=== PATIENT | female | born 1990 | race Caucasian/White ===

== ENCOUNTER 2017-10-20 19:06 | Inpatient (IN) ==
[2017-10-20] MEDS ORDERED: ONDANSETRON 4 MG/2 ML VIAL IV ONE ×2 (19:48→22:42)
[2017-10-20] MEDS ORDERED: LACTATED RINGERS 1,000 ML IV ONE (19:48)
[2017-10-20 20:36] LABS: Basophils # (Auto) 0 K/mcL (0.0-0.3); Basophils % (Auto) 0.1 % (0.0-2.0); Eosinophils # (Auto) 0.3 K/mcL (0.0-0.7); Eosinophils % (Auto) 2.1 % (0.0-7.0); Granulocytes % (Auto) 86.2 % (38.0-78.0); Lymphocytes # (Auto) 0.7 K/mcL (1.5-4.8); Lymphocytes % (Auto) 5.1 % (15.5-49.0); Mean Cell Volume 63.8 fL (80.0-100.0); Mean Corpuscular HGB Conc 30.5 g/dL (31.0-36.0); Mean Corpuscular Hemoglobin 19.4 pg (26.0-34.0); Monocytes # (Auto) 0.9 K/mcL (0.1-0.9); Monocytes % (Auto) 6.5 % (1.0-12.0); Platelet Count 248 K/mcL (140-440); RBC 3.59 M/mcL (4.00-5.20); Red Cell Distribution Width 17.7 % (11.5-14.5)
[2017-10-20 20:53] LABS: ALT/SGPT 10 U/l (0-40); Albumin 4.3 gm/dL (3.2-5.2); Albumin/Globulin Ratio 1.5 (1.0-2.3); Alkaline Phosphatase 55 U/L (39-117); Blood Urea Nitrogen 12 mg/dl (6-20); C-Reactive Protein 1.3 mg/dl (0.0-0.8)
[2017-10-20] MEDS ORDERED: HYDROmorphone 2 MG/ML VIAL IV ONE (22:43)
[2017-10-20] MEDS ORDERED: PIPERACILLIN SODIUM/TAZOBACTAM 3.375 GM in DEXTROSE 5% IN WATER 50 ML IV ONE (22:59)
[2017-10-20] MEDS ORDERED: ONDANSETRON 4 MG/2 ML VIAL IV PRN (23:03)
[2017-10-20] MEDS ORDERED: HYDROmorphone 2 MG/ML VIAL IV PRN (23:03)
[2017-10-20] MEDS ORDERED: 0.9 % SODIUM CHLORIDE 250 ML IV SCH (23:15)
[2017-10-21] MEDS ORDERED: HYDROmorphone 2 MG/ML VIAL ONE (01:25)
[2017-10-21] MEDS: HYDROmorphone 2 MG/ML VIAL IV PRN ×3 (01:29→09:57)
[2017-10-21] MEDS: DEXTROSE 5%-1/2NS 1,000 ML IV SCH ×2 (04:38→14:26)
[2017-10-21] MEDS: PIPERACILLIN SODIUM/TAZOBACTAM 3.375 GM in DEXTROSE 5% IN WATER 50 ML IV SCH ×5 (05:12→23:45)
[2017-10-21 07:14] LABS: Basophils # (Auto) 0 K/mcL (0.0-0.3); Basophils % (Auto) 0.2 % (0.0-2.0); Eosinophils # (Auto) 0.5 K/mcL (0.0-0.7); Eosinophils % (Auto) 3.7 % (0.0-7.0); Granulocytes % (Auto) 80.1 % (38.0-78.0); Lymphocytes # (Auto) 1.1 K/mcL (1.5-4.8); Lymphocytes % (Auto) 8.9 % (15.5-49.0); Mean Corpuscular HGB Conc 31.5 g/dL (31.0-36.0); Mean Corpuscular Hemoglobin 21.4 pg (26.0-34.0); Monocytes # (Auto) 0.9 K/mcL (0.1-0.9); Monocytes % (Auto) 7.1 % (1.0-12.0); Platelet Count 239 K/mcL (140-440); RBC 3.86 M/mcL (4.00-5.20); Red Cell Distribution Width 20.5 % (11.5-14.5)
[2017-10-21 07:15] LABS: Appearance,Urine CLEAR; Bilirubin,Urine NEG (NEG); Color,Urine YELLOW; Glucose,Urine (UA) NEGATIVE (NEG); Leukocyte Esterase,Urine NEG /uL (NEG); Protein,Urine NEG (NEG); Urine Blood NEG mg/dL (<0.03); Urobilinogen,Urine NEG (NEG)
[2017-10-21 07:32] LABS: ALT/SGPT 8 U/l (0-40); Albumin 3.9 gm/dL (3.2-5.2); Albumin/Globulin Ratio 1.7 (1.0-2.3); Alkaline Phosphatase 47 U/L (39-117); Bilirubin,Direct 0.2 mg/dL (0.0-0.3); Blood Urea Nitrogen 8 mg/dl (6-20); Gamma Glutamyl Transpeptidase 9 U/L (5-36); Uric Acid 1.9 mg/dL (2.5-8.0)
--- NOTE | 2017-10-21 08:13 | Ultrasound Report ---
History: Pelvic pain and vaginal bleeding. Findings: The pelvis was imaged transabdominally and endovaginally Uterus is retroflexed. Myometrium is homogeneous. It measures 4.4 x 5.4 x 7.7 cm. The endometrium is 1.5 mm in thickness and there is no fluid in the endometrial canal. The right ovary is 2.2 x 3.0 x 5.6 cm and contains small follicles. There is normal blood flow to the right ovary. Contiguous with the right ovary there is a heterogeneous complex mass which contains some brightly echogenic material. It measures 2.7 x 4.1 x 4.4 cm. This is hypovascular. A small amount of free fluid is present in the adnexa. The left ovary is normal and contain small follicles. The ovary is 2.0 x 2.4 x 3.5 cm. Doppler shows a number of engorged vessels in the right adnexa. This is associated with pelvic venous congestion syndrome. Impression: 4.4 cm right adnexal mass which is most likely a teratoma or dermoid. Normal uterus and ovaries Engorged veins in the right adnexa. This is associated pelvic venous congestion syndrome Interpreted and Authenticated by: Owen Moreno 10/21/17
--- NOTE | 2017-10-21 08:18 | Cat Scan Report ---
CLINICAL INFORMATION: Right lower quadrant pain with nausea and vomiting COMPARISON: Pelvic ultrasound done on 10/20/17 FINDINGS: The pelvis is imaged following intravenous but no oral contrast from above the iliac crest to the symphysis pubis. Sagittal and coronal reformats were created. Inferior to the cecum there is a tubular shaped fluid-filled structure which measures up to 9 mm in diameter. No appendicolith is seen. There is subtle stranding of surrounding fat. No abscess is present and there is no free fluid adjacent to this structure. In the right adnexa there is a fat-containing mass which contains more solid components centrally. It measures 3 cm. There is a similar-appearing fat-containing mass located superior and anterior to the upper fundus of the uterus. It measures 4.5 cm. The one in the right adnexa was seen on the preceding ultrasound. The one on the left side of the pelvis was outside of the field of view of the pelvic ultrasound. There is a very small amount of free fluid in the right adnexa and in the posterior cul-de-sac. The urinary bladder appears normal. No abnormality is seen in the uterus or ovaries. IMPRESSION: Acute appendicitis Bilateral dermoids or teratomas in the adnexa Interpreted and Authenticated by: Owen Moreno 10/21/17
--- NOTE | 2017-10-21 09:22 | Emergency Department Note ---
Abdominal Pain HPI - General Chief Complaint: Abdominal Pain Stated Complaint: rlq pain, n/v Time Seen by Provider: 10/20/17 20:34 Source: patient Mode of arrival: ambulatory Limitations: no limitations - History of Present Illness HPI Narrative: This pleasant 26-year-old female came to the emergency room this evening having onset of abdominal pain around 6 AM today. Has been off and on in the right lower quadrant. No previous similar. She has had some nausea and some emesis of bile. She has had some of this all day long with about 6 episodes. She has had some feverish feeling as well as temperature 99.2 100 with chills but no sweats. She has had some headaches off and on as well. She has her appendix. No history of ovarian cyst. No history of tubal ligation. No history of anemia. She does not believe she is . Her last menstrual period was not normal but she had 3 of them in September and this is new completely for her. Have been using "pull out method" for contraception. REVIEW OF SYSTEMS: Has had some off-and-on chest pains today. No cough nor shortness of breath. Has had some constipation. Denies hematochezia, melena, acid reflux, heartburn. No dysuria. Has had significant anxiety. No depression. - Related Data Home Medications Medication Instructions Recorded Confirmed Zzzquil 30 ml PO HSP PRN 10/21/17 10/21/17 Allergies Allergy/AdvReac Type Severity Reaction Status Date / Time No Known Drug Allergies Allergy Verified 10/20/17 19:09 Abdominal Pain PMH - Past Medical History Medical history: Reports: other (NO anemia, NO ovarian cysts, NO tubal .) Psychiatric history: Reports: anxiety. Denies: depression Family history: Reports: other (Appendicitis and peptic ulcer disease) - Social History Smoking status: Never smoker Physical Exam Limitations: no limitations General appearance: alert, in no apparent distress Head: atraumatic, normocephalic Eye: Present: EOMI ENT: normal oropharynx, mucous membranes moist Neck: Present: trachea midline. Absent: lymphadenopathy, thyromegaly Respiratory: Present: normal lung sounds bilaterally. Absent: respiratory distress, wheezes, stridor, accessory muscle use, prolonged expiratory phase Cardiovascular: Present: regular rate, normal rhythm. Absent: systolic murmur, diastolic murmur Abdominal: Present: soft, tenderness. Absent: distention, guarding, rebound, rigidity, organomegaly, mass Abdominal tenderness: Present: RLQ, moderate Extremities: Absent: pedal edema, pretibial edema, calf tenderness Back: Absent: CVA tenderness (R), CVA tenderness (L), spinous process tenderness Neurological: Present: alert, oriented X3 Psychiatric: Present: normal affect, normal mood Skin: Present: warm, dry, pallor (to palms, lips, and fingernail beds. This is moderate to severe pallor.) Course Vital Signs Temperature 98.6 F 10/20/17 19:06 Pulse Rate 105 H 10/20/17 19:06 Respiratory Rate 14 10/20/17 19:06 Blood Pressure 117/71 10/20/17 19:06 Pulse Oximetry (%) 100 10/20/17 19:06 Temperature 99.9 F H 10/21/17 07:32 Pulse Rate 96 H 10/21/17 04:30 Respiratory Rate 16 10/21/17 07:32 Blood Pressure 90/58 10/21/17 07:32 Pulse Oximetry (%) 98 10/21/17 07:32 Abdominal Pain - MDM Narrative Medical decision making narrative: 7:33 PM Right lower quadrant pain in the setting of female with incomplete control considerations but low-grade fever. Will start with labs and ultrasound. Consider CT scan. 9:00 PM approximately. Labs returned with mildly elevated white count and mildly elevated CRP. Ultrasound demonstrated a probable teratoma of the right ovary. CT ordered. Labs also revealed a very significant anemia with microcytosis, hypochromic pattern. This is not felt to be acute blood loss due to how well she is handling this overall her generally. However, the ultrasound did show a small amount of fluid in both sides of the adnexal areas of the pelvis. test was negative. 10:[address] scan reveals possible bilateral teratomas and suspicious for acute appendicitis. I discussed case with hospitalist and then surgeon Dr. Hector Patel, with conclusion to go with antibiotics, transfuse 2 units, monitor and plan for appendectomy tomorrow and consideration of what to do with the teratomas whether to biopsy or if needs oophorectomy. - Lab Data Result diagrams: 10/21/17 06:43 10/21/17 06:43 Lab Results 10/20/17 10/20/17 10/20/17 Range/Units 19:50 19:50 19:50 WBC 13.5 H (4.5-11.0) K/mcL RBC 3.59 L (4.00-5.20) M/mcL Hgb 7.0 L* (12.0-15.0) g/dL Hct 22.9 L (36.0-48.0) % MCV 63.8 L (80.0-100.0) fL MCH 19.4 L (26.0-34.0) pg MCHC 30.5 L (31.0-36.0) g/dL RDW 17.7 H (11.5-14.5) % Plt Count 248 (140-440) K/mcL MPV 8.6 (7.4-10.4) fL Gran % 86.2 H (38.0-78.0) % Lymph % (Auto) 5.1 L (15.5-49.0) % Leon % (Auto) 6.5 (1.0-12.0) % Eos % (Auto) 2.1 (0.0-7.0) % Baso % (Auto) 0.1 (0.0-2.0) % Gran # 11.7 H (1.8-8.0) K/mcL Lymph # (Auto) 0.7 L (1.5-4.8) K/mcL Leon # (Auto) 0.9 (0.1-0.9) K/mcL Eos # (Auto) 0.3 (0.0-0.7) K/mcL Baso # (Auto) 0 (0.0-0.3) K/mcL PT TNP INR TNP APTT TNP Sodium 136 (133-145) mmol/L Potassium 3.5 (3.3-5.1) mmol/L Chloride 100 (96-108) mmol/L Carbon Dioxide 21 L (22-30) mmol/L Anion Gap 15.0 (8-16) BUN 12 (6-20) mg/dl Creatinine 0.6 (0.6-1.1) mg/dl GFR Calculation 125 Glucose 92 (70-105) mg/dL Calcium 8.9 (8.6-10.4) mg/dl Total Bilirubin 0.4 (0.0-1.0) mg/dL AST 16 (0-37) U/l ALT 10 (0-40) U/l Alkaline Phosphatase 55 (39-117) U/L C-Reactive Protein 1.3 H (0.0-0.8) mg/dl Total Protein 7.2 (5.9-8.4) gm/dL Albumin 4.3 (3.2-5.2) gm/dL Globulin 2.9 (2.2-3.7) gm/dL Albumin/Globulin Ratio 1.5 (1.0-2.3) Disposition Pt seen by [facility] only: No Clinical Impression: Abnormal ultrasound of ovary, Hypochromic microcytic anemia, Polymenorrhea Appendicitis Qualifiers: Appendicitis type: acute appendicitis Acute appendicitis type: with localized peritonitis Qualified Code(s): K35.3 - Acute appendicitis with localized peritonitis Disposition: Xfer As Inpt ([facility]) Condition: Fair
--- NOTE | 2017-10-21 11:39 | General Surg History&Physical ---
History of Present Illness Patient information: Note initiated : 10/21/17 at 11:34 am Service Date, if different from initiated Date: [] Patient: Marci Majano a 26 y/o F admitted on 10/20/17 for RLQ Pain, Nause and Vomiting/Appendicitis. Chief Complaint: [] HPI: Ms. Majano is a 26 year old F admitted with right lower quadrant pain. The patient awakened at 6 AM on 20 October with sharp pain in the right lower quadrant. This was followed by nausea and vomiting 6 over the next 12 hours. The pain progressed in severity throughout the day but stayed in the right lower quadrant. She was seen in the emergency room where she was noted to have a tender abdomen specifically in the right lower quadrant with guarding. She also had anemia with hemoglobin of 7 and leukocytosis of 13,200. Pelvic ultrasound revealed a right ovarian cyst. CT of the abdomen revealed acute appendicitis with bilateral ovarian masses compatible with dermoid or teratoma. There was a small amount of blood or fluid in the pelvis. The patient states that she has not had dysfunctional bleeding except for September when she had 3 heavy periods. This had not happened before. She did not have pelvic pain previously. She was not known to be anemic previously. Discussed with patient the approach of therapy today. We will do a laparoscopic appendectomy. I will order a CA-19-9 and CEA 125 in preparation for future treatment of her dermoid cyst. Biopsies will not be done because of potential for spillage and small potential for contamination of the peritoneal cavity if these indeed have malignancy. She is informed that the potential for malignancy is very small but still needs to be considered. She and her mother agree with this approach. Review of Systems All systems PM: reviewed and no additional remarkable complaints except as stated - Cardiovascular chest pain (Episodic mid chest pain of variable frequency unassociated with activity) - Genitourinary Menstruation: period heavy (3 periods In September) - Musculoskeletal other (Bilateral plantar pain of recent onset) - Psychiatric anxiety, no depression Past History Past medical history: No chronic medical illness Past surgical history: No surgical procedure Past family history: Mother age 53 with chronic anemia Father age 52 with alcohol-related disease Brother age 25 alive and well Past social history: Employed Never smoker Frequent alcohol use primarily beer Denies drug use Medications and Allergies Home Medications Medication Instructions Recorded Confirmed Type Zzzquil 30 ml PO HSP PRN 10/21/17 10/21/17 History Allergies Allergy/AdvReac Type Severity Reaction Status Date / Time No Known Drug Allergies Allergy Verified 10/20/17 19:09 Exam Temp Pulse Resp BP Pulse Ox 99.9 F H 96 H 16 90/58 98 10/21/17 07:32 10/21/17 04:30 10/21/17 07:32 10/21/17 07:32 10/21/17 07:32 - General physical appearance well developed, well nourished, no distress - Eyes PERRL, normal ocular movement - ENT normal pinna, normal nares, normal mucosa, no hearing loss, no congestion - Head Head exam IM: Present: atraumatic, normocephalic - Neck no masses, no bruits, trachea midline, no lymphadectomy, no venous distension - Cardiovascular Cardiovascular exam IM: Present: normal rate and rhythm - Respiratory normal expansion, normal respiratory effort, clear to percussion, clear to auscultation - Abdomen Abdomen: Present: soft, tender (Diffuse tenderness in right lower quadrant and suprapubic area; no palpable mass), bowel sounds Hernia: Present: none - Genitourinary Present: normal external genitalia - Integumentary Present: no rash, no growths, no abnormal pigmentation - Neurologic Present: normal coordination, normal sensation - Musculoskeletal Present: normal gait, normal posture - Psychiatric Present: oriented to time, oriented to person, oriented to place, speech is normal, memory intact Assessment and Plan (1) Appendicitis Counseled for laparoscopic appendectomy today Status: Acute Qualifiers: Appendicitis type: acute appendicitis Acute appendicitis type: with localized peritonitis Qualified Code(s): K35.3 - Acute appendicitis with localized peritonitis (2) Hypochromic microcytic anemia Transfuse 2 units of packed red cells preoperatively Status: Acute (3) Bilateral dermoid cysts of ovaries We will do CA-19-9 and CEA 125 during this hospitalization and referred for gynecologic follow-up Status: Acute
[2017-10-21] MEDS ORDERED: NEOSTIGMINE 1 MG/ML VIAL IV ONE (12:10)
[2017-10-21] MEDS ORDERED: ROCURONIUM 10 MG/ML ML IV ONE (12:10)
[2017-10-21] MEDS ORDERED: DEXAMETHASONE 10 MG/ML VIAL IV ONE (12:10)
[2017-10-21] MEDS ORDERED: PROPOFOL 200 MG/20 ML VIAL IV ONE (12:10)
[2017-10-21] MEDS ORDERED: ONDANSETRON 4 MG/2 ML VIAL IV ONE (12:10)
[2017-10-21] MEDS ORDERED: LIDOCAINE HCL/PF 100 MG/5 ML SYRINGE IV ONE (12:10)
[2017-10-21] MEDS ORDERED: GLYCOPYRROLATE 0.2 MG/ML VIAL IV ONE (12:10)
[2017-10-21] MEDS ORDERED: KETAMINE 100 MG/ML ML IV ONE (12:10)
[2017-10-21] MEDS ORDERED: MIDAZOLAM 2 MG/2 ML VIAL IV ONE (12:10)
[2017-10-21] MEDS ORDERED: IPRATROPIUM/ALBUTEROL 3 ML AMPUL.NEB NEB PRN (12:30)
[2017-10-21] MEDS ORDERED: FLUMAZENIL 0.1 MG/ML ML IV PRN (12:30)
[2017-10-21] MEDS ORDERED: MEPERIDINE 25 MG/ML SYRINGE IV PRN (12:30)
[2017-10-21] MEDS ORDERED: BENZOCAINE/MENTHOL 1 LOZENGE PO PRN (12:30)
[2017-10-21] MEDS ORDERED: ONDANSETRON 4 MG/2 ML VIAL IV PRN (12:30)
[2017-10-21] MEDS ORDERED: LACTATED RINGERS 250 ML IV PRN (12:30)
[2017-10-21] MEDS ORDERED: LACTATED RINGERS 1,000 ML IV SCH (12:30)
[2017-10-21] MEDS ORDERED: fentaNYL 100 MCG/2 ML VIAL IV PRN (12:30)
[2017-10-21] MEDS ORDERED: ACETAMINOPHEN 1,000 MG/100 ML BOTTLE IV ONE (12:30)
[2017-10-21] MEDS ORDERED: HYDROmorphone 2 MG/ML VIAL IV PRN ×2 (12:30→13:47)
[2017-10-21] MEDS ORDERED: NALOXONE HCL 0.4 MG/ML VIAL IV PRN (12:30)
[2017-10-21] MEDS ORDERED: METHOCARBAMOL 1,000 MG/10 ML VIAL IV PRN (12:30)
--- NOTE | 2017-10-21 12:54 | Brief Operative Note ---
Date of procedure: 10/21/17 Pre-op diagnosis: acute appendicitis Post-op diagnosis: other (acute appendicitis; Bilateral dermoid cysts) Procedure: laparoscopic appendectomy Grafts/Implants: No Anesthesia: GETA Findings: Acute suppurative appendicitis Bilateral smooth dermoid cysts Complications: none Surgeon: Catherine Patel Estimated blood loss (cc): 5 Specimens Removed/Pathology: other (appendix) Condition: stable Disposition: PACU
--- NOTE | 2017-10-21 13:39 | Operative Note ---
DATE OF OPERATION: 10/21/2017 PREOPERATIVE DIAGNOSIS: Acute appendicitis. POSTOPERATIVE DIAGNOSES: 1. Acute appendicitis. 2. Bilateral dermoid cyst. PROCEDURE: Laparoscopic appendectomy. SURGEON: Catherine Patel M.D. DESCRIPTION: Under general endotracheal anesthesia, the patient's abdomen was prepped and draped in a sterile field. Timeout procedure was carried out as per protocol. Supraumbilical incision was made and Veress needle was inserted. Abdomen was insufflated with 2.5 liters of CO2. A 12 mm port was placed. Laparoscope was placed. The patient was placed in deep Trendelenburg position. Under videoscopic guidance, a 5 mm port was placed in the suprapubic midline and a 12 mm port in the left lower quadrant. Exploration of the pelvis revealed bilateral dermoid cysts which were smooth with some uterine intramural fibroids. There was a large volume of purulent material in the pelvis. The appendix was noted in the right lower quadrant laterally against the abdominal wall. The patient was rotated to the left. Photos of the ovaries were taken for confirmation. The appendix was bluntly dissected away from the lateral parietal peritoneum. It was grasped with a self-retaining grasper. A window was made at the base in the mesoappendix. The appendix and the mesoappendix were then sequentially transected using Endo KAREN stapler. The appendix was placed in an EndoCatch pouch and retrieved. Irrigation in the right gutter was carried out until clear. There was no bleeding. Irrigation of the pelvis was carried out until it was clear. CO2 was allowed to escape from the abdomen, and the ports were removed. The patient tolerated the procedure well. Fascia at the umbilicus was closed with interrupted 0 Vicryl. Skin incisions were closed with byron. The patient tolerated the procedure well. She was awakened uneventfully. Dressings were placed. She was transferred to a bed and taken to the postanesthetic care unit in stable, satisfactory condition. LCS:billie Job ID: [id number] Doc ID: [id number] Catherine Patel M.D.
[2017-10-21] MEDS ORDERED: PROMETHAZINE 25 MG/ML VIAL IV PRN (13:47)
[2017-10-21] MEDS ORDERED: LORazepam 2 MG/ML VIAL IV PRN (13:47)
[2017-10-21] MEDS ORDERED: ACETAMINOPHEN 1,000 MG/100 ML BOTTLE IV PRN (13:47)
[2017-10-21] MEDS: 0.9 % SODIUM CHLORIDE 1,000 ML IV SCH ×2 (14:12→23:00)
[2017-10-21] MEDS: oxyCODONE/APAP 5/325MG TABLET PO PRN ×2 (17:08→22:37)
[2017-10-21] MEDS: ONDANSETRON 4 MG/2 ML VIAL IV PRN (17:14)
[2017-10-22] MEDS: oxyCODONE/APAP 5/325MG TABLET PO PRN ×4 (02:01→13:21)
[2017-10-22] MEDS: PIPERACILLIN SODIUM/TAZOBACTAM 3.375 GM in DEXTROSE 5% IN WATER 50 ML IV SCH ×2 (05:41→12:12)
[2017-10-22] MEDS: 0.9 % SODIUM CHLORIDE 1,000 ML IV SCH ×2 (07:38→14:04)
[2017-10-22 08:11] LABS: ALT/SGPT 11 U/l (0-40); Albumin 3.3 gm/dL (3.2-5.2); Albumin/Globulin Ratio 1.4 (1.0-2.3); Alkaline Phosphatase 53 U/L (39-117); Blood Urea Nitrogen 5 mg/dl (6-20)
[2017-10-22 08:15] LABS: Basophils # (Auto) 0 K/mcL (0.0-0.3); Basophils % (Auto) 0 % (0.0-2.0); Eosinophils # (Auto) 0.7 K/mcL (0.0-0.7); Eosinophils % (Auto) 3.3 % (0.0-7.0); Granulocytes % (Auto) 91.5 % (38.0-78.0); Lymphocytes # (Auto) 0.4 K/mcL (1.5-4.8); Lymphocytes % (Auto) 2.2 % (15.5-49.0); Mean Cell Volume 69.2 fL (80.0-100.0); Mean Corpuscular HGB Conc 31.2 g/dL (31.0-36.0); Mean Corpuscular Hemoglobin 21.5 pg (26.0-34.0); Monocytes # (Auto) 0.6 K/mcL (0.1-0.9); Platelet Count 177 K/mcL (140-440); RBC 3.44 M/mcL (4.00-5.20); Red Cell Distribution Width 21.1 % (11.5-14.5)
[2017-10-22] MEDS: ONDANSETRON 4 MG/2 ML VIAL IV PRN (08:47)
--- NOTE | 2017-10-22 13:00 | General Surgery Progress Note ---
Subjective Patient reports: feels better, pain is less, tolerating liquids well, flatus, bowel movement, afebrile Narrative: Note initiated : 10/22/17 at 12:57 pm Service Date, if different from initiated Date: [] Patient: Marci Majano 26 y/o F admitted on 10/20/17 for RLQ Pain, Nause and Vomiting/Appendicitis. Chief Complaint: [26-year-old female who is status post laparoscopic appendectomy for acute suppurative appendicitis. She was also noted to have bilateral ovarian teratomatous and she has chronic iron deficiency anemia. She was transfused 2 units of packed red cells preoperatively and underwent laparoscopic appendectomy on yesterday. She is clinically stable and has done well. She tolerated liquid diet without difficulty and is stable for discharge. Her hemoglobin today is down to 7 but there is no evidence of blood loss. She feels fine and will not be transfused at this time. She will be discharged on ferrous sulfate and have follow-up hemoglobin evaluation in 1 month.] Objective Temp Pulse Resp BP Pulse Ox 97.8 F 88 16 106/59 97 10/22/17 11:23 10/22/17 04:06 10/22/17 11:23 10/22/17 11:23 10/22/17 11:23 - Additional Data Intake & Output - Last 24 hours: Intake & Output 10/20/17 10/21/17 10/22/17 10/23/17 05:59 05:59 05:59 06:59 Intake Total 1750 / 1750 3510 / 3510 1050 / 1050 Output Total 300 / 300 2725 / 2725 Balance 1450 / 1450 785 / 785 1050 / 1050 Weight 140 lb 140 lb 140 lb - General physical appearance well developed, well nourished, no distress - Eyes PERRL, normal ocular movement - ENT normal pinna, normal nares, normal mucosa, no hearing loss, no congestion - Neck no masses, no bruits, trachea midline, no lymphadectomy, no venous distension - Respiratory normal expansion, normal respiratory effort, clear to percussion, clear to auscultation - Cardiovascular Cardiovascular exam: Present: normal rate and rhythm, RRR, +S1, +S2. Absent: JVD - Abdomen tender (Mild tenderness around port sites with good active bowel sounds), bowel sounds (present), surgical scars (none), masses (none) - Integumentary no rash, no growths, no abnormal pigmentation - Neurologic normal coordination, normal sensation - Musculoskeletal normal gait, normal posture - Psychiatric oriented to time, oriented to person, oriented to place, speech is normal, memory intact - Labs 10/22/17 05:10 10/22/17 05:10 Diabetes panel 10/22/17 Range/Units 05:10 Sodium 139 (133-145) mmol/L Potassium 4.0 (3.3-5.1) mmol/L Chloride 106 (96-108) mmol/L Carbon Dioxide 23 (22-30) mmol/L BUN 5 L (6-20) mg/dl Creatinine 0.6 (0.6-1.1) mg/dl Glucose 118 H (70-105) mg/dL Calcium 8.0 L (8.6-10.4) mg/dl AST 18 (0-37) U/l ALT 11 (0-40) U/l Alkaline Phosphatase 53 (39-117) U/L Total Protein 5.7 L (5.9-8.4) gm/dL Albumin 3.3 (3.2-5.2) gm/dL Calcium panel 10/22/17 Range/Units 05:10 Calcium 8.0 L (8.6-10.4) mg/dl Albumin 3.3 (3.2-5.2) gm/dL Pituitary panel 10/22/17 Range/Units 05:10 Sodium 139 (133-145) mmol/L Potassium 4.0 (3.3-5.1) mmol/L Chloride 106 (96-108) mmol/L Carbon Dioxide 23 (22-30) mmol/L BUN 5 L (6-20) mg/dl Creatinine 0.6 (0.6-1.1) mg/dl Glucose 118 H (70-105) mg/dL Calcium 8.0 L (8.6-10.4) mg/dl Adrenal panel 10/22/17 Range/Units 05:10 Sodium 139 (133-145) mmol/L Potassium 4.0 (3.3-5.1) mmol/L Chloride 106 (96-108) mmol/L Carbon Dioxide 23 (22-30) mmol/L BUN 5 L (6-20) mg/dl Creatinine 0.6 (0.6-1.1) mg/dl Glucose 118 H (70-105) mg/dL Calcium 8.0 L (8.6-10.4) mg/dl Total Bilirubin 0.3 (0.0-1.0) mg/dL AST 18 (0-37) U/l ALT 11 (0-40) U/l Alkaline Phosphatase 53 (39-117) U/L Total Protein 5.7 L (5.9-8.4) gm/dL Albumin 3.3 (3.2-5.2) gm/dL Assessment and Plan (1) Appendicitis Status: Acute Assessment and plan: Stable postoperative day #1 without significant complaints; stable for discharge Current Visit: Yes (2) Hypochromic microcytic anemia Status: Acute Assessment and plan: Today's hemoglobin is 7.4 and patient will be discharged on ferrous sulfate Current Visit: Yes (3) Bilateral dermoid cysts of ovaries Status: Acute Assessment and plan: Discussed with patient the need for future ANTONIO and BSO. She asked if I would perform the procedure and I will make plans to do that in 6 weeks. Current Visit: Yes - Time Spent With Patient Total time spent is greater than 50% in coordination of care (as documented) at patient's floor/unit and/or counseling patient:
--- NOTE | 2017-10-24 14:39 | Surgical Pathology Report ---
HISTOLOGY SPECIMEN MICROSCOPIC DIAGNOSIS APPENDIX, APPENDECTOMY: -- ACUTE APPENDICITIS WITH MARKED TRANSMURAL ACUTE INFLAMMATION AND ACUTE SEROSITIS. (RLF:sln) PROCEDURAL IMPRESSION Acute appendicitis. GROSS DESCRIPTION Received in formalin labeled with the patient information, is an appendix 10.1 cm in length and 1.2 cm in diameter with 1.2 cm of amaya attached fat. It has harris-amaya exudate on the skin surface. The resection margin is stapled closed. Section reveals dilated thin garcia and yellow-amaya fluid. The margin is inked black. [facility] sections submitted - one cassette. ([email or web address]:[email or web address]) Electronically Signed by: Kadi Yan M.D.
== END 2017-10-22 14:00 | disposition home or self-care (01) | DRG 339 ==
LOC: ED 19:06 → MEDSUR 23:25
PROVIDERS: ADMIT Family Medicine Adult Medicine; ATTEND Family Medicine Adult Medicine
PROC: LAPAPPY (ICD-10-PCS; 2017-10-21 12:09)

== ENCOUNTER 2017-12-09 06:25 | Inpatient (IN) ==
[2017-12-07 17:43] LABS: Basophils # (Auto) 0 K/mcL (0.0-0.3); Basophils % (Auto) 0.5 % (0.0-2.0); Eosinophils # (Auto) 0.2 K/mcL (0.0-0.7); Eosinophils % (Auto) 3.9 % (0.0-7.0); Granulocytes % (Auto) 57.8 % (38.0-78.0); Lymphocytes # (Auto) 1.9 K/mcL (1.5-4.8); Lymphocytes % (Auto) 30.1 % (15.5-49.0); Mean Cell Volume 80.5 fL (80.0-100.0); Mean Corpuscular HGB Conc 33.4 g/dL (31.0-36.0); Mean Corpuscular Hemoglobin 26.9 pg (26.0-34.0); Monocytes # (Auto) 0.5 K/mcL (0.1-0.9); Monocytes % (Auto) 7.7 % (1.0-12.0); Platelet Count 300 K/mcL (140-440); RBC 4.54 M/mcL (4.00-5.20)
[2017-12-07 18:04] LABS: ALT/SGPT 10 U/l (0-40); Albumin/Globulin Ratio 1.4 (1.0-2.3); Alkaline Phosphatase 52 U/L (39-117); Blood Urea Nitrogen 11 mg/dl (6-20)
[2017-12-09] MEDS ORDERED: cefOXitin 2 GM in DEXTROSE 5% IN WATER 50 ML IV SCH (08:00)
[2017-12-09] MEDS ORDERED: fentaNYL 250 MCG/5 ML VIAL IV ONE (08:50)
[2017-12-09] MEDS ORDERED: ONDANSETRON 4 MG/2 ML VIAL IV ONE (08:50)
[2017-12-09] MEDS ORDERED: PROPOFOL 200 MG/20 ML VIAL IV ONE (08:50)
[2017-12-09] MEDS ORDERED: DEXAMETHASONE 10 MG/ML VIAL IV ONE (08:50)
[2017-12-09] MEDS ORDERED: diphenhydrAMINE 50 MG/ML VIAL IV ONE (08:50)
[2017-12-09] MEDS ORDERED: GLYCOPYRROLATE 0.2 MG/ML VIAL IV ONE (08:50)
[2017-12-09] MEDS ORDERED: NEOSTIGMINE 1 MG/ML VIAL IV ONE (08:50)
[2017-12-09] MEDS ORDERED: LIDOCAINE HCL/PF 100 MG/5 ML SYRINGE IV ONE (08:50)
[2017-12-09] MEDS ORDERED: ROCURONIUM 10 MG/ML ML IV ONE (08:50)
[2017-12-09] MEDS ORDERED: MIDAZOLAM 5 MG/5 ML VIAL IV ONE (08:50)
[2017-12-09] MEDS ORDERED: ESMOLOL 100 MG/10 ML VIAL IV ONE (08:50)
[2017-12-09] MEDS ORDERED: ROPIVACAINE HCL/PF 30 ML VIAL IJ ONE (08:50)
[2017-12-09] MEDS ORDERED: MEPERIDINE 25 MG/ML SYRINGE IV PRN (09:41)
[2017-12-09] MEDS ORDERED: IPRATROPIUM/ALBUTEROL 3 ML AMPUL.NEB NEB PRN (09:41)
[2017-12-09] MEDS ORDERED: KETOROLAC 30 MG/ML VIAL IV PRN (09:41)
[2017-12-09] MEDS ORDERED: ACETAMINOPHEN 1,000 MG/100 ML BOTTLE IV ONE (09:41)
[2017-12-09] MEDS ORDERED: fentaNYL 100 MCG/2 ML VIAL IV PRN (09:41)
[2017-12-09] MEDS ORDERED: ONDANSETRON 4 MG/2 ML VIAL IV PRN (09:41)
[2017-12-09] MEDS ORDERED: LACTATED RINGERS 1,000 ML IV SCH (09:45)
--- NOTE | 2017-12-09 10:43 | Brief Operative Note ---
Date of procedure: 12/09/17 Pre-op diagnosis: bilateral cystic teratomas of ovary Post-op diagnosis: other (bilateral cystic teratoma of ovary) Procedure: total abdominal hysterectomy with bilateral salpingo-oophorectomy Grafts/Implants: No Anesthesia: GETA Findings: large smooth cystic masses of ovary Complications: none Surgeon: Catherine Patel Estimated blood loss (cc): 50 Specimens Removed/Pathology: other (uterus ,tubes and ovaries) Condition: stable Disposition: PACU
[2017-12-09] MEDS ORDERED: HYDROmorphone 2 MG/ML VIAL IV PRN (11:49)
[2017-12-09] MEDS ORDERED: ALPRAZolam 0.5 MG TABLET PO PRN (11:49)
[2017-12-09] MEDS: KETOROLAC 15 MG/ML VIAL IV SCH ×3 (12:03→23:30)
[2017-12-09] MEDS: METOCLOPRAMIDE 10 MG/2 ML VIAL IV SCH ×3 (12:15→23:32)
[2017-12-09] MEDS: 0.9 % SODIUM CHLORIDE 1,000 ML IV SCH ×2 (12:17→22:02)
[2017-12-09] MEDS: HYDROmorphone 2 MG/ML VIAL IV PRN ×5 (13:50→23:28)
[2017-12-09] MEDS: ACETAMINOPHEN 1,000 MG/100 ML BOTTLE IV PRN ×2 (15:35→22:02)
[2017-12-09] MEDS: PANTOPRAZOLE 40 MG VIAL IV SCH (18:05)
[2017-12-09] MEDS: ONDANSETRON 4 MG/2 ML VIAL IV PRN (21:12)
[2017-12-10] MEDS: HYDROmorphone 2 MG/ML VIAL IV PRN ×3 (01:58→09:10)
[2017-12-10] MEDS: ACETAMINOPHEN 1,000 MG/100 ML BOTTLE IV PRN ×2 (04:35→11:59)
[2017-12-10] MEDS: METOCLOPRAMIDE 10 MG/2 ML VIAL IV SCH ×3 (05:37→17:22)
[2017-12-10] MEDS: KETOROLAC 15 MG/ML VIAL IV SCH ×3 (05:39→17:23)
[2017-12-10 05:53] LABS: Basophils # (Auto) 0 K/mcL (0.0-0.3); Basophils % (Auto) 0 % (0.0-2.0); Eosinophils # (Auto) 0.3 K/mcL (0.0-0.7); Granulocytes % (Auto) 80.9 % (38.0-78.0); Lymphocytes # (Auto) 0.9 K/mcL (1.5-4.8); Lymphocytes % (Auto) 9.7 % (15.5-49.0); Mean Cell Volume 81.4 fL (80.0-100.0); Mean Corpuscular Hemoglobin 26.9 pg (26.0-34.0); Monocytes # (Auto) 0.6 K/mcL (0.1-0.9); Monocytes % (Auto) 6.4 % (1.0-12.0); Platelet Count 266 K/mcL (140-440); RBC 3.02 M/mcL (4.00-5.20); Red Cell Distribution Width 26.4 % (11.5-14.5)
[2017-12-10] MEDS: PANTOPRAZOLE 40 MG VIAL IV SCH ×2 (07:36→17:22)
[2017-12-10] MEDS: 0.9 % SODIUM CHLORIDE 1,000 ML IV SCH ×2 (09:10→20:02)
[2017-12-10] MEDS ORDERED: HYDROmorphone 2 MG/ML VIAL IV PRN (13:32)
[2017-12-10] MEDS: oxyCODONE HCL 5 MG TABLET PO PRN ×3 (14:25→23:12)
--- NOTE | 2017-12-10 16:46 | General Surgery Progress Note ---
Subjective Patient reports: feels better, pain is less, tolerating liquids well, flatus, no bowel movement, afebrile Narrative: Note initiated : 12/10/17 at 4:45 pm Service Date, if different from initiated Date: [] Patient: Marci Majano 27 y/o F admitted on 12/09/17 for Total Abdominal Hysterectomy w/ Bilateral *!tallow refiner!*. Chief Complaint: [Patient is doing well. She has good control of her abdominal pain. She denies nausea or vomiting. She has had flatus but no bowel movement. It is noted that her hemoglobin is decreased to 8.1 but her abdominal exam is totally benign. She does not complain of any pelvic pain. Her urine is clear and a Sommers catheter will be discontinued.] Objective Temp Pulse Resp BP Pulse Ox 98 F 86 16 105/68 97 12/10/17 15:45 12/10/17 04:37 12/10/17 15:45 12/10/17 15:45 12/10/17 15:45 - Additional Data Intake & Output - Last 24 hours: Intake & Output 12/08/17 12/09/17 12/10/17 12/11/17 05:59 05:59 05:59 05:59 Intake Total 3525 / 3525 1600 / 1600 Output Total 2925 / 2925 1575 / 1575 Balance 600 / 600 25 / 25 Weight 139 lb 135 lb 8 oz - General physical appearance well developed, well nourished, no distress - Eyes PERRL, normal ocular movement - ENT normal pinna, normal nares, normal mucosa, no hearing loss, no congestion - Neck no masses, no bruits, trachea midline, no lymphadectomy, no venous distension - Respiratory normal expansion, normal respiratory effort, clear to percussion, clear to auscultation - Cardiovascular Cardiovascular exam: Present: normal rate and rhythm, RRR, +S1, +S2. Absent: JVD - Abdomen tender (Mild incisional tenderness but no abdominal distention; good active bowel sounds) - Integumentary no rash, no growths, no abnormal pigmentation - Neurologic normal coordination, normal sensation - Musculoskeletal normal gait, normal posture - Psychiatric oriented to time, oriented to person, oriented to place, speech is normal, memory intact - Labs 12/11/17 09:59 12/11/17 05:11 Assessment and Plan (1) Bilateral dermoid cysts of ovaries Status: Acute Current Visit: No (2) Acute blood loss as cause of postoperative anemia Status: Acute Assessment and plan: We will continue to monitor hemoglobin Discontinue Sommers catheter Advance diet as tolerated Current Visit: Yes - Time Spent With Patient Total time spent is greater than 50% in coordination of care (as documented) at patient's floor/unit and/or counseling patient:
[2017-12-11] MEDS: METOCLOPRAMIDE 10 MG/2 ML VIAL IV SCH ×5 (00:06→23:39)
[2017-12-11] MEDS: oxyCODONE HCL 5 MG TABLET PO PRN ×4 (03:39→21:27)
[2017-12-11] MEDS: KETOROLAC 15 MG/ML VIAL IV SCH ×2 (05:48)
[2017-12-11] MEDS: 0.9 % SODIUM CHLORIDE 1,000 ML IV SCH ×4 (06:04→23:39)
[2017-12-11 06:44] LABS: ALT/SGPT 8 U/l (0-40); Albumin 2.9 gm/dL (3.2-5.2); Albumin/Globulin Ratio 1.5 (1.0-2.3); Alkaline Phosphatase 33 U/L (39-117); Bilirubin,Direct < 0.2 mg/dL (0.0-0.3); Blood Urea Nitrogen 5 mg/dl (6-20); Gamma Glutamyl Transpeptidase 7 U/L (5-36); Uric Acid 3.2 mg/dL (2.5-8.0)
[2017-12-11] MEDS: PANTOPRAZOLE 40 MG VIAL IV SCH ×2 (07:24→17:24)
[2017-12-11] MEDS: ONDANSETRON 4 MG/2 ML VIAL IV PRN (07:25)
[2017-12-11 07:34] LABS: Mean Cell Volume 81.1 fL (80.0-100.0); Mean Corpuscular HGB Conc 33.9 g/dL (31.0-36.0); Mean Corpuscular Hemoglobin 27.5 pg (26.0-34.0); Platelet Count 193 K/mcL (140-440); RBC 2.34 M/mcL (4.00-5.20); Red Cell Distribution Width 26.4 % (11.5-14.5)
[2017-12-11] MEDS ORDERED: 0.9 % SODIUM CHLORIDE 250 ML IV SCH ×3 (08:00→13:47)
[2017-12-11 08:21] LABS: Anisocytosis 3+ (NONE SEEN); Eosinophils % (Manual) 2 % (0-7); Lymphocytes % 45 % (15-49); Monocytes % (Manual) 4 % (1-12); Platelet Estimate NORMAL (NORMAL); RBC Morphology ABNORM (NORMAL); Segmented Neutrophils % 48 % (38-78)
[2017-12-11] MEDS ORDERED: IOPAMIDOL 100 ML BOTTLE IV ONE (10:06)
--- NOTE | 2017-12-11 10:43 | General Surgery Progress Note ---
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 Chief Complaint: [Patient is stable however she was noted to have a hemoglobin of 6.4 this morning. This is down significantly from 12 preop and 8.1 yesterday.. She is not having any increased pain. She did have some nausea and vomiting after drinking some oral contrast but she was asymptomatic before she started drinking the contrast. CT of the abdomen shows she has a large rectus sheath hematoma without any intra-abdominal bleeding. Discussed with the patient the need to evacuate the rectus sheath hematoma and control the bleeding. She will be transfused 2 units of blood preoperatively. She is counseled for exploration of her abdominal wall with control of bleeding.] Objective Temp Pulse Resp BP Pulse Ox 97.9 F 96 H 16 105/68 99 12/11/17 07:04 12/11/17 03:42 12/11/17 07:04 12/11/17 07:04 12/11/17 07:04 - Additional Data Intake & Output - Last 24 hours: Intake & Output 12/09/17 12/10/17 12/11/17 12/12/17 05:59 05:59 05:59 05:59 Intake Total 3525 / 3525 3350 / 3350 1400 / 1400 Output Total 2925 / 2925 3675 / 3675 1999 / 1999 Balance 600 / 600 -325 / -325 -600 / -600 Weight 135 lb 8 oz 134 lb - General physical appearance well developed, well nourished, no distress, severe distress - Eyes PERRL, normal ocular movement - ENT normal pinna, normal nares, normal mucosa, no hearing loss, no congestion - Neck no masses, no bruits, trachea midline, no lymphadectomy, no venous distension - Respiratory normal expansion, normal respiratory effort, clear to percussion, clear to auscultation - Cardiovascular Cardiovascular exam: Present: normal rate and rhythm, RRR, +S1, +S2. Absent: JVD, tachycardia - Abdomen tender (Moderate tenderness of abdominal wall but with good active bowel sounds. Incision looks good), bowel sounds (present), surgical scars (none), masses (none) - Rectum normal sphincter tone, no hemorrhoids, no tenderness, no masses, no bleeding - Integumentary no rash, no growths, no abnormal pigmentation - Neurologic normal coordination, normal sensation - Musculoskeletal normal gait, normal posture - Psychiatric oriented to time, oriented to person, oriented to place, speech is normal, memory intact - Labs 12/11/17 09:59 12/11/17 05:11 Diabetes panel 12/11/17 Range/Units 05:11 Sodium 139 (133-145) mmol/L Potassium 3.8 (3.3-5.1) mmol/L Chloride 109 H (96-108) mmol/L Carbon Dioxide 26 (22-30) mmol/L BUN 5 L (6-20) mg/dl Creatinine 0.6 (0.6-1.1) mg/dl Glucose 94 (70-105) mg/dL Calcium 7.9 L (8.6-10.4) mg/dl AST 16 (0-37) U/l ALT 8 (0-40) U/l Alkaline Phosphatase 33 L (39-117) U/L Total Protein 4.8 L (5.9-8.4) gm/dL Albumin 2.9 L (3.2-5.2) gm/dL Triglycerides 75 (<150) mg/dl Calcium panel 12/11/17 Range/Units 05:11 Calcium 7.9 L (8.6-10.4) mg/dl Phosphorus 2.5 L (2.7-4.5) mg/dL Albumin 2.9 L (3.2-5.2) gm/dL Pituitary panel 12/11/17 Range/Units 05:11 Sodium 139 (133-145) mmol/L Potassium 3.8 (3.3-5.1) mmol/L Chloride 109 H (96-108) mmol/L Carbon Dioxide 26 (22-30) mmol/L BUN 5 L (6-20) mg/dl Creatinine 0.6 (0.6-1.1) mg/dl Glucose 94 (70-105) mg/dL Calcium 7.9 L (8.6-10.4) mg/dl Adrenal panel 12/11/17 Range/Units 05:11 Sodium 139 (133-145) mmol/L Potassium 3.8 (3.3-5.1) mmol/L Chloride 109 H (96-108) mmol/L Carbon Dioxide 26 (22-30) mmol/L BUN 5 L (6-20) mg/dl Creatinine 0.6 (0.6-1.1) mg/dl Glucose 94 (70-105) mg/dL Calcium 7.9 L (8.6-10.4) mg/dl Total Bilirubin < 0.2 (0.0-1.0) mg/dL AST 16 (0-37) U/l ALT 8 (0-40) U/l Alkaline Phosphatase 33 L (39-117) U/L Total Protein 4.8 L (5.9-8.4) gm/dL Albumin 2.9 L (3.2-5.2) gm/dL Assessment and Plan (1) Bilateral dermoid cysts of ovaries Status: Acute Current Visit: No (2) Acute blood loss as cause of postoperative anemia Status: Acute Assessment and plan: Transfuse 2 units of packed red cells 2 OR for exploration of abdominal wall and control of bleeding Current Visit: Yes - Time Spent With Patient Total time spent is greater than 50% in coordination of care (as documented) at patient's floor/unit and/or counseling patient:
[2017-12-11] MEDS ORDERED: BENZOCAINE/MENTHOL 1 LOZENGE PO PRN (11:33)
[2017-12-11] MEDS ORDERED: MEPERIDINE 25 MG/ML SYRINGE IV PRN (11:33)
[2017-12-11] MEDS ORDERED: FLUMAZENIL 0.1 MG/ML ML IV PRN (11:33)
[2017-12-11] MEDS ORDERED: fentaNYL 100 MCG/2 ML VIAL IV PRN (11:33)
[2017-12-11] MEDS ORDERED: diphenhydrAMINE 50 MG/ML VIAL IV PRN (11:33)
[2017-12-11] MEDS ORDERED: ONDANSETRON 4 MG/2 ML VIAL IV PRN (11:33)
[2017-12-11] MEDS ORDERED: IPRATROPIUM/ALBUTEROL 3 ML AMPUL.NEB NEB PRN (11:33)
[2017-12-11] MEDS ORDERED: PROMETHAZINE 25 MG/ML VIAL IV PRN (11:33)
[2017-12-11] MEDS ORDERED: NALOXONE HCL 0.4 MG/ML VIAL IV PRN (11:33)
[2017-12-11] MEDS ORDERED: LACTATED RINGERS 250 ML IV PRN (11:33)
[2017-12-11] MEDS ORDERED: LACTATED RINGERS 1,000 ML IV SCH (11:45)
[2017-12-11] MEDS ORDERED: cefOXitin 2 GM VIAL IV SCH (11:45)
[2017-12-11] MEDS ORDERED: LIDOCAINE HCL/PF 100 MG/5 ML SYRINGE IV ONE (11:50)
[2017-12-11] MEDS ORDERED: fentaNYL 100 MCG/2 ML VIAL IV ONE (11:50)
[2017-12-11] MEDS ORDERED: ONDANSETRON 4 MG/2 ML VIAL IV ONE (11:50)
[2017-12-11] MEDS ORDERED: PROPOFOL 200 MG/20 ML VIAL IV ONE (11:50)
[2017-12-11] MEDS ORDERED: SUCCINYLCHOLINE 20 MG/ML ML IV ONE (11:50)
[2017-12-11] MEDS ORDERED: DEXAMETHASONE 10 MG/ML VIAL IV ONE (11:50)
[2017-12-11] MEDS ORDERED: MIDAZOLAM 5 MG/5 ML VIAL IV ONE (11:50)
[2017-12-11] MEDS ORDERED: BACITRACIN 50,000 UNIT VIAL IR ONE (12:14)
--- NOTE | 2017-12-11 12:41 | Brief Operative Note ---
Date of procedure: 12/11/17 Pre-op diagnosis: post operative bleeding with subfascial hematoma Post-op diagnosis: other (subfascial hematoma ;postoperative) Procedure: abdominal wall exploration with evacuation of subfascial hematoma Grafts/Implants: No Anesthesia: GETA Findings: very large hematoma below rectus muscle fascia Complications: none Surgeon: Catherine Patel Estimated blood loss (cc): 5 Specimens Removed/Pathology: none sent Condition: stable Disposition: PACU
[2017-12-11] MEDS ORDERED: ACETAMINOPHEN 1,000 MG/100 ML BOTTLE IV ONE (12:47)
--- NOTE | 2017-12-11 13:19 | Cat Scan Report ---
CLINICAL INFORMATION: Recent hysterectomy. Decreased hematocrit COMPARISON: None. TECHNIQUE: Following enteric contrast, 80 cc of Isovue-300 were injected intravenously, and 60 seconds later, 0.625 mm helical slices were obtained from the mid heart through the subtrochanteric regions. Following reconstruction, 2.5 mm sagittal, coronal and axial reformatted images were processed and reviewed at bone, lung and soft tissue windows. Five minutes later, 0.625 mm helical slices were obtained from the mid heart through the kidneys and viewed at soft tissue windows.The exam was performed using radiation dose optimization techniques including, but not limited to, automated exposure control, adjustment of the mA and/or kV according to patient size and use of iterative reconstruction technique. FINDINGS: Lung bases show subsegmental atelectasis in both posterior lower lobes and tiny bilateral pleural effusions. The visualized heart is normal Images of the abdomen show a 15 mm rapidly enhancing nodule in the anterior segment of the right hepatic lobe on arterial phase images which becomes isointense on the 60 second portal venous phase images. It is almost certainly represents a flash fill benign hemangioma - no other liver abnormalities. The gallbladder and bile ducts are normal: CBD is 5 mm. Both kidneys, adrenal glands, spleen, pancreas and aorta, including aortic branches, are normal in size configuration without focal lesion Images through the pelvis show hysterectomy changes. The urinary bladder is unremarkable. Moderate free fluid is noted deep true pelvis and lower retroperitoneum. There is also gas retroperitoneum and around the mesenteric cavity - there is a result of recent abdominal/pelvic surgery A large (14 cm) hematoma has developed in the anterior wall of the pelvis between the rectus sheath and the peritoneum (properitoneal region). Small amounts of gas are seen within the hematoma - there is no active extravasation from the opacified arteries in this region that would suggest acute active hemorrhage. Small of gas seen within the Camper's fascia. There is mild enlargement of the ovarian and periuterine venous plexuses but there is no evidence of hemorrhage from the structures IMPRESSION: 1. 14 cm hematoma deep to the rectus sheath within the properitoneal fat of the anterior false pelvis wall. No evidence of active extravasation. 2. Hysterectomy changes with moderate simple appearing free fluid in the deep true pelvis and retroperitoneum. Modest amounts of intraperitoneal and retroperitoneal gas seen - as expected medially following surgery. 3. There is mild enlargement of the periuterine venous plexus, but no evidence of active extravasation. 4. 15 mm rapidly enhancing lesion in the anterior segment of the right hepatic lobe is almost certainly a flash filling benign hemangioma. Suggest six month follow-up limited ultrasound to ensure stability. Interpreted and Authenticated by: Frederick Gilliam 12/11/17
[2017-12-11] MEDS ORDERED: ALPRAZolam 0.5 MG TABLET PO PRN (13:47)
[2017-12-11] MEDS ORDERED: HYDROmorphone 2 MG/ML VIAL IV PRN (13:47)
[2017-12-11 15:00] LABS: Basophils # (Auto) 0 K/mcL (0.0-0.3); Basophils % (Auto) 0.1 % (0.0-2.0); Eosinophils # (Auto) 0.1 K/mcL (0.0-0.7); Eosinophils % (Auto) 1.8 % (0.0-7.0); Granulocytes % (Auto) 86.3 % (38.0-78.0); Lymphocytes # (Auto) 0.7 K/mcL (1.5-4.8); Lymphocytes % (Auto) 9.5 % (15.5-49.0); Mean Cell Volume 82.6 fL (80.0-100.0); Mean Corpuscular HGB Conc 33.5 g/dL (31.0-36.0); Mean Corpuscular Hemoglobin 27.7 pg (26.0-34.0); Monocytes # (Auto) 0.2 K/mcL (0.1-0.9); Monocytes % (Auto) 2.3 % (1.0-12.0); Platelet Count 195 K/mcL (140-440); RBC 3.47 M/mcL (4.00-5.20); Red Cell Distribution Width 23.2 % (11.5-14.5)
[2017-12-12] MEDS: METOCLOPRAMIDE 10 MG/2 ML VIAL IV SCH ×2 (05:23→12:22)
[2017-12-12] MEDS: oxyCODONE HCL 5 MG TABLET PO PRN ×3 (05:23→14:50)
[2017-12-12 05:51] LABS: Basophils # (Auto) 0 K/mcL (0.0-0.3); Basophils % (Auto) 0.2 % (0.0-2.0); Eosinophils # (Auto) 0.3 K/mcL (0.0-0.7); Eosinophils % (Auto) 3.5 % (0.0-7.0); Granulocytes % (Auto) 73.4 % (38.0-78.0); Lymphocytes # (Auto) 1.4 K/mcL (1.5-4.8); Lymphocytes % (Auto) 15.7 % (15.5-49.0); Mean Cell Volume 82.9 fL (80.0-100.0); Mean Corpuscular HGB Conc 32.9 g/dL (31.0-36.0); Mean Corpuscular Hemoglobin 27.3 pg (26.0-34.0); Monocytes # (Auto) 0.6 K/mcL (0.1-0.9); Monocytes % (Auto) 7.2 % (1.0-12.0); Platelet Count 193 K/mcL (140-440); RBC 3.22 M/mcL (4.00-5.20)
[2017-12-12 06:17] LABS: ALT/SGPT 9 U/l (0-40); Albumin 3.3 gm/dL (3.2-5.2); Albumin/Globulin Ratio 1.7 (1.0-2.3); Alkaline Phosphatase 37 U/L (39-117); Bilirubin,Direct < 0.2 mg/dL (0.0-0.3); Blood Urea Nitrogen 3 mg/dl (6-20); Gamma Glutamyl Transpeptidase 9 U/L (5-36); Uric Acid 2.2 mg/dL (2.5-8.0)
[2017-12-12] MEDS: PANTOPRAZOLE 40 MG VIAL IV SCH (07:24)
[2017-12-12] MEDS: 0.9 % SODIUM CHLORIDE 1,000 ML IV SCH ×2 (07:37→12:16)
[2017-12-12] MEDS: ONDANSETRON 4 MG/2 ML VIAL IV PRN ×2 (09:49→14:54)
--- NOTE | 2017-12-12 15:23 | Discharge Summary ---
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 Chief Complaint: [] Date of admission: 12/09/17 Discharge date: 12/12/17 Attending physician: Catherine Patel Hospitalization Hospital course: 27-year-old female with bilateral dermoid cysts of her ovaries. Patient underwent ANTONIO and BSO on 09 December 2017. The surgery went uneventful and she had less than a 50 cc blood loss. In the postoperative. It was noted that her hemoglobin had dropped to 8 and on the her human drug globin dropped to 6.4. A CT of the abdomen reveal a large subfascial hematoma above the muscle. Her abdominal incision was explored on yesterday and a large volume of clot was removed. There were 2 small muscle bleeders that were clamped and the area was covered with copious Kaila. There was no bleeding at the end of the procedure. The patient is doing well. She has minimal pain. Her hemoglobin is stable and she requests that she be discharged home. She is discharged in satisfactory condition. 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 Secondary discharge diagnosis: Postoperative subcutaneous fascial bleeding Anemia due to postoperative bleeding Reason for admission: Bilateral cystic teratoma of ovary Procedures: Total abdominal hysterectomy with bilateral salpingo-oophorectomy Exploration of abdominal incision with evacuation of clot and control of bleeding Pertinent studies/significant findings: CT of abdomen and pelvis with IV contrast Complications: Postoperative bleeding Exam Temp Pulse Resp BP Pulse Ox 98.5 F 101 H 20 99/57 98 12/12/17 12:00 12/12/17 12:00 12/12/17 12:12/12/17 12:12/12/17 12:00 - General physical appearance well developed, well nourished, no distress - Eyes PERRL, normal ocular movement - ENT normal pinna, normal nares, normal mucosa, no hearing loss, no congestion - Head Head exam IM: Present: atraumatic, normocephalic - Neck no masses, no bruits, trachea midline, no lymphadectomy, no venous distension - Cardiovascular Cardiovascular exam IM: Present: normal rate and rhythm - Respiratory normal expansion, normal respiratory effort, clear to percussion, clear to auscultation - Abdomen Abdomen: Present: soft, tender, bowel sounds Hernia: Present: none - Genitourinary Present: normal external genitalia - Rectum Rectum: Present: normal sphincter tone, no hemorrhoids, no tenderness, no masses , no bleeding - Integumentary Present: no rash, no growths, no abnormal pigmentation - Neurologic Present: normal coordination, normal sensation - Musculoskeletal Present: normal gait, normal posture - Psychiatric Present: oriented to time, oriented to person, oriented to place, speech is normal, memory intact Discharge Plan - Patient/Caregiver Discharge Instructions Activity: increase activity as tolerated Diet: Regular Diet Additional Instructions: Leave Tegaderm in place until you return to the office No lifting above 10 pounds unless instructed to do so Prescriptions: oxyCODONE HCL [Roxicodone] 10 mg PO Q4HP PRN #60 tab PRN Reason: Pain Level 3-6 - Follow up Plan Follow up with: Catherine Patel MD [Physician] - 12/26/17 8:15 am Disposition: Home, Self-Care Prognosis: Good Rehab Potential: Good I certify that the patient requires SNF services.: No Overall status at discharge: patient is not back to baseline Pending Studies Diet Regular Diet Start TueDec 12 1046 Sodium Chloride (Sodium Chloride 0.9%) 1,000 mls @ 100 mls/hr IV .Q10H JARED Last Admin: 12/12/17 12:16 Dose: Not Given Admin: 12/12/17 07:37 Dose: 100 mls/hr Infusion: 12/12/17 07:27 Dose: 100 mls/hr Admin: 12/11/17 23:39 Dose: Not Given Admin: 12/11/17 21:27 Dose: 100 mls/hr Admin: 12/11/17 14:28 Dose: Not Given Metoclopramide HCl (Reglan) 10 mg IV Q6 JARED Last Admin: 12/12/17 12:22 Dose: 10 mg Admin: 12/12/17 05:23 Dose: 10 mg Admin: 12/11/17 23:39 Dose: 10 mg Admin: 12/11/17 17:30 Dose: 10 mg Ondansetron HCl (Zofran) 4 mg IV Q4HP PRN PRN Reason: Nausea And Vomiting Last Admin: 12/12/17 14:54 Dose: 4 mg Admin: 12/12/17 09:49 Dose: 4 mg Oxycodone HCl (Roxicodone) 10 mg PO Q4HP PRN PRN Reason: PAIN LEVEL 3-6 Last Admin: 12/12/17 14:50 Dose: 10 mg Admin: 12/12/17 09:45 Dose: 10 mg Admin: 12/12/17 05:23 Dose: 10 mg Admin: 12/11/17 21:27 Dose: 10 mg Admin: 12/11/17 17:30 Dose: 10 mg Pantoprazole Sodium (Protonix) 40 mg IV BIDAC JARED Last Admin: 12/12/17 07:24 Dose: 40 mg Admin: 12/11/17 17:24 Dose: 40 mg Shift Summary 12/12/17 03:52 Shift Summary by Adry Gonzalez Addendum entered by Adry Gonzalez R.N. 12/12/17 05:26: 3 units PRBC in lab on standby for patient if needed. Original Note: A&Ox4. VSS. Incision to lower abdomen has Dermabond and Tegaderm in place; CDI. Patient had to have second sx d/t a large hematoma within the peritoneal fact of the anterior false pelvis wall. Patient received 2 units PRBC; Hgb increased from 6.4 to 9.6. Labs will be drawn again this morning. Patient's pain has decreased significantly post-op. Administered Roxicodone 10mg x1 for pain. K- pad in place. 20 gauge to left wrist has NS at 100 ml/hr. Tolerating full liquid diet; denies N/V. Up independently. Patient hopes to d/c home today. Will update at bedside. Initialized on 12/12/17 03:52 - END OF NOTE
--- NOTE | 2017-12-13 09:29 | Surgical Pathology Report ---
HISTOLOGY SPECIMEN MICROSCOPIC DIAGNOSIS UTERUS, FALLOPIAN TUBES AND OVARIES, HYSTERECTOMY AND BILATERAL SALPINGO-OOPHORECTOMY: -- OVARIES: MATURE CYSTIC TERATOMA (DERMOID CYST), BILATERAL. - FOLLICLE AND CORPUS LUTEUM CYSTS. - NO MALIGNANCY IDENTIFIED. -- FALLOPIAN TUBES: PARATUBAL CYSTS. - NO MALIGNANCY IDENTIFIED. -- ENDOMETRIUM: SECRETORY ENDOMETRIUM. - NO HYPERPLASIA OR MALIGNANCY IDENTIFIED. -- MYOMETRIUM: NO DIAGNOSTIC ALTERATIONS. -- SEROSA: NO DIAGNOSTIC ALTERATIONS. -- CERVIX: NO DIAGNOSTIC ALTERATIONS. (RLF:djf) CLINICAL HISTORY Polymenorrhea. PROCEDURAL IMPRESSION Bilateral dermoid cysts. GROSS DESCRIPTION Received in formalin labeled with the patient information, is a hysterectomy specimen with attached cervix and bilateral adnexae. The uterus is 110 grams and 9.4 cm from cervix to fundus, 6.0 cm from left to right and 4.0 cm from anterior to posterior. The serosal surface is pink-amaya, smooth and glistening. The ectocervix is 3.2 x 3.2 cm with a 1.5 cm long centrally located slit-like os. The endocervical canal is up to 1.5 cm in diameter and the transformation zone is well demarcated. The endometrial cavity is 4.0 x 3.2 cm, triangular and flattened. The myometrium is pink-amaya and trabecular and up to 1.9 cm thick posteriorly and 2.2 cm thick anteriorly. The endometrium is up to 0.3 cm thick. No gross lesions or areas of necrosis are identified. The right ovary and tube are inked black. The right ovary is 32 grams and 4.5 x 4.0 x 3.0 cm. The surface is pink to purple-amaya, smooth and glistening. Sectioning reveals several cysts ranging in size from 0.3 to 4.0 cm in greatest dimension. The largest is filled with thick, oily yellow material and hair fragments. The parenchyma is pink-amaya. The right fallopian tube is 5.6 cm long by up to 0.8 cm in diameter with attached fimbriated end. The left ovary is 48 grams and 6.0 x 4.0 x 3.5 cm. The surface is pink to yellow-amaya, smooth and glistening. Sectioning reveals several cysts ranging in size from 0.1 to 4.5 cm in greatest dimension. The largest is filled with thick yellow oily material with multiple hair fragments. The parenchyma is pink-amaya. The left fallopian tube is 5.5 cm long by up to 0.8 cm in diameter with attached fimbriated end. Human Resources Operations Manager sections submitted as follows: A1 - anterior cervix; A2 - posterior cervix and cul-de-sac shaving; A3 - anterior endomyometrium; A4 posterior endomyometrium; A5-A6 right ovary; A7 - right tube; A8-A9 - left ovary; A10 - left tube; A11-A12 - left ovary. (STS:wendy) Electronically Signed by: Kadi Yan M.D.
--- NOTE | 2017-12-15 13:56 | Operative Note ---
DATE OF OPERATION: 12/11/2017 PREOPERATIVE DIAGNOSIS: Postoperative bleeding with subfascial hematoma. POSTOPERATIVE DIAGNOSIS: Subfascial hematoma. PROCEDURE: Abdominal wall exploration with evacuation of subfascial hematoma. SURGEON: Catherine Patel M.D. FINDINGS: A very large hematoma below the rectus muscle fascia. DESCRIPTION: Under general anesthesia, the patient's abdomen was prepped and draped in the sterile field. The Pfannenstiel incision was opened. The subcutaneous tissue sutures and the fascial sutures were removed. A large hematoma was noted beneath the fascia. The hematoma was evacuated and the subfascial space was copiously irrigated. There were two bleeders in the lower abdomen close to the area of the pyramidalis muscle. These were clipped proximally and distally. The bleeding stopped. There was slight oozing from two areas on the right lateral rectus muscle. This was controlled with suture ligature of 3-0 silk. No other bleeding was noted. The area was brushed with a dry laparotomy sponge to try to activate any bleeding that may have been subclinical. None was seen. The entire surface of the rectus muscle was coated with Kaila hemostatic powder. No bleeding was noted. The rectus fascia was closed with running 0 Prolene. Subcutaneous tissue was closed with two running 2-0 Monocryl. Skin was closed with subcuticular 3-0 Vicryl. Large Tegaderm dressing was placed. The patient tolerated the procedure well. She was awakened and transferred to the postanesthetic care unit in stable, satisfactory condition. LCS:billie Job ID: [id number] Doc ID: [id number] Catherine Patel M.D.
--- NOTE | 2017-12-27 08:20 | Operative Note ---
DATE OF OPERATION: 12/09/2017 PREOPERATIVE DIAGNOSIS: Bilateral cystic teratomas of the ovary. POSTOPERATIVE DIAGNOSIS: Bilateral cystic teratomas of the ovary. PROCEDURE: Total abdominal hysterectomy with bilateral salpingo-oophorectomy. SURGEON: Catherine Patel M.D. FINDINGS: Large, smooth cystic masses of both ovaries. DESCRIPTION OF PROCEDURE: Under general anesthesia, the patient's abdomen was prepped and draped in a sterile field. A standard lower Pfannenstiel incision was made. Incision extended through the subcutaneous tissue to the rectus fascia. The rectus fascia was incised and the edges were then grasped. The fascia was from the rectus muscle up to the umbilicus. Hemostasis was achieved with Hemoclips and electrocautery. The rectus muscle was opened in the midline. Peritoneum was entered. A Tomas retractor was placed. The large ovarian masses were noted. The abdomen was packed off. The uterus was grasped with a single-tooth tenaculum. The infundibulopelvic ligament on the right side was initially incised. This was carried over to the ovarian vessels. The ovarian vessels were doubly clamped and divided. The left side was done in a similar manner. The tubo-ovarian complex was clamped with a large Michaela clamp at its junction with the uterus bilaterally. The uterine vessels were then sequentially clamped, divided, and controlled with a Elvis suture of 0 Vicryl. This initially was continued on the right side down to the apex of the vagina and then continued on the left side in a similar manner. Hemostasis was very good. There was minimal blood loss. The vaginal apex was then clamped with two large curved Elvis clamps on each side. The cervix was then excised. The specimen was passed off. The apex of the vagina was then closed using running mattress suture of 0 Monocryl. This was reinforced with multiple interrupted 0 Monocryl. Hemostasis was achieved. The bladder flap was inspected, and there was no bleeding. The peritoneum was raised and no bleeding was noted. This was covered with Kaila hemostatic powder, and the peritoneum was closed using running 2-0 Monocryl. Sponge, needle, instrument and blade counts were verified as correct. The peritoneum was closed with 0 Monocryl. Muscle was reapproximated using 0 Monocryl. Hemostasis in the rectus muscle was achieved, and there was no bleeding noted. The fascia was closed with running 0 Prolene. Subcutaneous tissue was closed in two layers using running 2-0 Monocryl. Skin was closed with a subcuticular 3-0 Vicryl. Dermabond was placed, and this was covered with a large Tegaderm dressing. The patient tolerated the procedure well. She was awakened, transferred to a bed, and taken to the postanesthetic care unit in a stable, satisfactory condition. LCS:billie Job ID: [id number] Doc ID: [id number] Catherine Patel M.D.
== END 2017-12-12 16:40 | disposition home or self-care (01) | DRG 742 ==
LOC: MEDSUR 06:25
PROVIDERS: ADMIT Family Medicine Adult Medicine; ATTEND Family Medicine Adult Medicine